=== PATIENT | male | born 1965 ===

== ENCOUNTER → 2020-08-16 | Outpatient (CLI) | payer OTHER | END | disposition home or self-care (01) | LOC: PLD 10:55 → LAB SHORT 10:55 | DX: D22.5 Melanocytic nevi of trunk (principal); D22.39 Melanocytic nevi of other parts of face | CPT/HCPCS: 88305 ==

== ENCOUNTER → 2024-09-07 | Outpatient (CLI) | payer OTHER | END | disposition home or self-care (01) | LOC: LAB 15:12 → LAB SHORT 15:12 | DX: L02.431 Carbuncle of right axilla (principal) | CPT/HCPCS: 87070; 87077; 87186; 87205 ==